=== PATIENT | male | born 1940 | race Caucasian/White ===

== ENCOUNTER 2020-10-31 07:14 | Emergency (ER) | payer MEDICARE ==
[~2020-10-31] VITALS: Ht 182.9 cm; Wt 72.3 kg
[2020-10-31] MEDS ORDERED: LIDOcaine 1% W/epiNEPHrine 1:200,000 10ml vial ONE (08:00)
[2020-10-31] MEDS ORDERED: tranexamic acid 100mg/ml inj. TP ONE (09:45)
[2020-10-31] MEDS ORDERED: ondansetron 4mg rapidly disintigrating tab PO ONE (09:55)
[2020-10-31] MEDS ORDERED: LIDOcaine Viscous 15ml cup MM ONE (10:20)
[2020-10-31 12:10] VITALS: BP 148/85
[2020-10-31] MEDS ORDERED: SULF1TAB49 PO (12:11)
[2020-11-01] MEDS ORDERED: ONDA4TAB6 PO (08:24)
== END 2020-10-31 12:25 | disposition home or self-care (01) ==
LOC: ER 07:15
DX: R04.0 Epistaxis (principal); Z79.2 Long term (current) use of antibiotics; Z79.899 Other long term (current) drug therapy
CPT/HCPCS: 30901; 99284

== ENCOUNTER → 2020-11-01 | Emergency (ER) | payer MEDICARE ==
[~2020-11-01] VITALS: Ht 182.9 cm; Wt 75.0 kg
[~2020-11-01] MED LIST: ONDA4TAB6 PO; SULF1TAB49 PO
[2020-11-01 06:35] VITALS: BP 109/77
== END | disposition home or self-care (01) ==
LOC: ER 06:12
DX: R04.0 Epistaxis (principal); R11.0 Nausea; Z79.2 Long term (current) use of antibiotics; Z79.899 Other long term (current) drug therapy
CPT/HCPCS: 99284

== ENCOUNTER 2020-11-03 01:07 | Emergency (ER) | payer MEDICARE ==
[~2020-11-03] VITALS: Ht 182.9 cm; Wt 71.2 kg
[2020-11-03] MEDS ORDERED: cocaine 4% topical solution 4ml bottle MM ONE (02:55)
[2020-11-03] MEDS ORDERED: phenylephrine 0.5% nose drops 15ml NS PRN (03:34)
[2020-11-03 03:44] VITALS: BP 135/87
== END 2020-11-03 03:46 | disposition home or self-care (01) ==
LOC: ER 01:08
DX: R04.0 Epistaxis (principal); Z79.82 Long term (current) use of aspirin; Z79.899 Other long term (current) drug therapy
CPT/HCPCS: 30901; 99281; 99284